=== PATIENT | female | born 1980 | race Caucasian/White ===

== ENCOUNTER 2017-02-02 20:13 | Outpatient (CLI) | payer OTHER ==
[2017-02-02 21:25] LABS: HEMATOCRIT 37.1 % (34.6-47.8); HEMOGLOBIN 12.6 g/dL (11.7-16.4); WHITE BLOOD COUNT 7.6 x10^3/uL (3.4-10)
[2017-02-02 21:34] LABS: BLOOD UREA NITROGEN 7 mg/dL (7-18)
[2017-02-02 21:37] LABS: ASPARTATE AMINO TRANSFERASE 16 U/L (15-37)
[2017-02-02 21:53] LABS: AMNI OBC PASS; AMNISURE NEGATIVE (NEGATIVE)
== END 2017-02-02 22:30 | disposition home or self-care (01) ==
LOC: LDOP 20:13
PROVIDERS: ATTEND Obstetrics & Gynecology
DX: O09.523 Supervision of elderly multigravida, third trimester (principal); O26.893 Other specified pregnancy related conditions, third trimester; O10.913 Unspecified pre-existing hypertension complicating pregnancy, third trimester; O99.343 Other mental disorders complicating pregnancy, third trimester; F32.9 Major depressive disorder, single episode, unspecified; R10.9 Unspecified abdominal pain; Z3A.31 31 weeks gestation of pregnancy
CPT/HCPCS: 36415; 59025; 76815; 80053; 81003; 82248; 84112; 84550; 85025; 87086; 99201; G0463

== ENCOUNTER 2017-02-14 10:08 | Outpatient (CLI) | payer OTHER ==
[~2017-02-14] VITALS: Ht 160 cm; Wt 98.2 kg
[2017-02-14 11:23] LABS: HEMATOCRIT 37.5 % (34.6-47.8); HEMOGLOBIN 12.7 g/dL (11.7-16.4); WHITE BLOOD COUNT 6.6 x10^3/uL (3.4-10)
[2017-02-14 11:34] LABS: ASPARTATE AMINO TRANSFERASE 19 U/L (15-37); BLOOD UREA NITROGEN 9 mg/dL (7-18)
[2017-02-14] MEDS ORDERED: LABE200T3 PO (13:01)
[2017-02-14] MEDS ORDERED: BUSP5TAB2 PO (13:02)
[2017-02-14] MEDS ORDERED: PREN1TAB10 PO (13:03)
[2017-02-14] MEDS ORDERED: FAMO-79 PO (13:04)
[2017-02-14 13:16] VITALS: BP 123/88
== END 2017-02-14 13:30 | disposition home or self-care (01) ==
LOC: LDOP 10:08
PROVIDERS: ATTEND Obstetrics & Gynecology
DX: O09.513 Supervision of elderly primigravida, third trimester (principal); O10.913 Unspecified pre-existing hypertension complicating pregnancy, third trimester; O99.213 Obesity complicating pregnancy, third trimester; O99.343 Other mental disorders complicating pregnancy, third trimester; F32.9 Major depressive disorder, single episode, unspecified; Z3A.33 33 weeks gestation of pregnancy
CPT/HCPCS: 36415; 59025; 76815; 80053; 81003; 82570; 84156; 84550; 85025; 99211; G0463

== ENCOUNTER 2017-02-17 23:33 | Outpatient (CLI) | payer OTHER ==
[~2017-02-17] VITALS: Ht 160 cm; Wt 98.1 kg
[~2017-02-17 23:33] MED LIST: BUSP5TAB2 PO; FAMO-79 PO; LABE200T3 PO; PREN1TAB10 PO
== END 2017-02-18 01:10 | disposition home or self-care (01) ==
LOC: LDOP 23:33
PROVIDERS: ATTEND Obstetrics & Gynecology
DX: O09.513 Supervision of elderly primigravida, third trimester (principal); O99.213 Obesity complicating pregnancy, third trimester; O10.913 Unspecified pre-existing hypertension complicating pregnancy, third trimester; O99.343 Other mental disorders complicating pregnancy, third trimester; F32.9 Major depressive disorder, single episode, unspecified; Z3A.33 33 weeks gestation of pregnancy
CPT/HCPCS: 59025; 81003; 87086; 99211; G0463

== ENCOUNTER 2017-02-24 14:50 | Outpatient (CLI) | payer OTHER ==
[~2017-02-24] VITALS: Ht 160 cm; Wt 102.2 kg
[2017-02-24 15:03] VITALS: BP 130/83
== END 2017-02-24 15:40 | disposition home or self-care (01) ==
LOC: LDOP 14:50
PROVIDERS: ATTEND Obstetrics & Gynecology
DX: O09.513 Supervision of elderly primigravida, third trimester (principal); O99.213 Obesity complicating pregnancy, third trimester; O10.913 Unspecified pre-existing hypertension complicating pregnancy, third trimester; O99.343 Other mental disorders complicating pregnancy, third trimester; F32.9 Major depressive disorder, single episode, unspecified; Z3A.34 34 weeks gestation of pregnancy
CPT/HCPCS: 59025; 99211; G0463

== ENCOUNTER 2017-02-27 14:32 | Outpatient (CLI) | payer OTHER ==
[~2017-02-27] VITALS: Ht 160 cm; Wt 100.0 kg
[2017-02-27 15:00] VITALS: BP 137/92
== END 2017-02-27 16:44 | disposition home or self-care (01) ==
LOC: LDOP 14:32
PROVIDERS: ATTEND Obstetrics & Gynecology
DX: O09.513 Supervision of elderly primigravida, third trimester (principal); O99.213 Obesity complicating pregnancy, third trimester; O10.913 Unspecified pre-existing hypertension complicating pregnancy, third trimester; O99.343 Other mental disorders complicating pregnancy, third trimester; F32.9 Major depressive disorder, single episode, unspecified; Z3A.33 33 weeks gestation of pregnancy
CPT/HCPCS: 59025; 76819; 99211; G0463

== ENCOUNTER → 2017-08-18 | Outpatient (CLI) | payer OTHER ==
[~2017-08-18] MED LIST changes: +DOCU-131 PO; +HYDR-3240 PO; +LIDOCAINE 1%, 20ML ONE
== END | disposition home or self-care (01) ==
LOC: CFH 10:23 → EDSTATUS 10:30
PROVIDERS: ATTEND Nurse Practitioner Family
DX: D24.2 Benign neoplasm of left breast (principal)
CPT/HCPCS: 19083; 88305; J3490

== ENCOUNTER 2018-06-05 19:23 | Emergency (ER) | payer OTHER ==
[~2018-06-05] VITALS: Ht 160 cm; Wt 91.0 kg
[~2018-06-05 19:23] MED LIST changes: -LABE200T3 PO; +LABE200T6 PO; -LIDOCAINE 1%, 20ML ONE
[2018-06-05] MEDS ORDERED: ACETAMINOPHEN 500 MG TABLET PO ONE (19:30)
[2018-06-05] MEDS ORDERED: ACETAMINOPHEN 500 MG TABLET ONE (19:33)
[2018-06-05 20:03] LABS: RAPID INFLUENZA A Negative (Negative); RAPID INFLUENZA B Negative (Negative)
[2018-06-05 20:07] LABS: BASOPHILS # (AUTO) 0.02 x10^3/uL (0-0.1); BASOPHILS % (AUTO) 0 % (0-1); EOSINOPHILS # (AUTO) 0.03 x10^3/uL (0-0.4); EOSINOPHILS % (AUTO) 1 % (1-7); LYMPHOCYTES # (AUTO) 0.77 x10^3/uL (1-3.4); LYMPHOCYTES % (AUTO) 15 % (22-44); MD NO; MEAN CORPUSCULAR HEMOGLOBIN 32.8 pg (27.0-34.8); MEAN CORPUSCULAR VOLUME 93.7 fL (80-100); MEAN PLATELET VOLUME 7.3 fL (7.4-10.4); MONOCYTES # (AUTO) 0.28 x10^3/uL (0.2-0.8); MONOCYTES % (AUTO) 6 % (2-9); NEUTROPHILS # (AUTO) 3.87 x10^3/uL (1.8-6.8); NEUTROPHILS % (AUTO) 78 % (42-75); PLATELET COUNT 322 x10^3/uL (130-400); RED BLOOD COUNT 4.38 x10^6/uL (3.82-5.3); RED CELL DISTRIBUTION WIDTH 12.4 % (9.6-15.2)
[2018-06-05 20:16] LABS: ALBUMIN 3.7 g/dL (3.4-5.0); ANION GAP 8 mmol/L (5-15); CALCIUM 8.5 mg/dL (8.5-10.1); CHLORIDE 106 mmol/L (98-107)
[2018-06-05 20:21] LABS: ALANINE AMINOTRANSFERASE 198 U/L (12-78); ALKALINE PHOSPHATASE 114 U/L (45-117); BILIRUBIN,TOTAL 0.4 mg/dL (0.2-1.0); CREATININE 0.95 mg/dL (0.55-1.02); TOTAL PROTEIN 7.1 g/dL (6.4-8.2); TROPONIN I < 0.015 ng/mL (0.000-0.045)
[2018-06-05 20:33] LABS: MICROSCOPIC NOT IND
[2018-06-05 20:38] LABS: CULTURE INDICATED? NO
[2018-06-05 22:08] VITALS: BP 143/95
== END 2018-06-05 22:10 | disposition home or self-care (01) ==
LOC: ED 21:14
DX: B34.9 Viral infection, unspecified (principal); I10 Essential (primary) hypertension
CPT/HCPCS: 36415; 71046; 80053; 81003; 84484; 85025; 87400; 93005; 99284

== ENCOUNTER 2018-06-07 17:52 | Emergency (ER) | payer OTHER ==
[~2018-06-07] VITALS: Ht 160 cm; Wt 89.4 kg
--- NOTE | 2018-06-07 18:32 | NUR ---
Pt back to room from bathroom, urine sample collected. Pt unable to provide stool sample at this time.
--- NOTE | 2018-06-07 18:38 | NUR ---
Susan LEAL, at bedside to evaluate pt.
[2018-06-07] MEDS ORDERED: ESCI5TAB7 PO (18:44)
[2018-06-07] MEDS ORDERED: SODIUM CHLORIDE 0.9% 1,000 ML IV ONE (18:44)
[2018-06-07] MEDS ORDERED: BUPR-173 PO (18:44)
[2018-06-07] MEDS ORDERED: LISI-167 PO (18:44)
[2018-06-07] MEDS ORDERED: LABE200T6 PO (18:44)
[2018-06-07 19:00] LABS: MICROSCOPIC NOT IND
[2018-06-07] MEDS ORDERED: SODIUM CHLORIDE FLUSH 10ML SYR IVF ONE (19:00)
[2018-06-07 19:03] LABS: CULTURE INDICATED? NO
--- NOTE | 2018-06-07 19:09 | NUR ---
PIV started, labs drawn including blood cultures x 1. Lab at bedside for 2nd blood culture. IVF running.
--- NOTE | 2018-06-07 19:11 | NUR ---
[employer] at bedside with hat in place for stool sample collection.
[2018-06-07 19:24] LABS: BASOPHILS # (AUTO) 0.01 x10^3/uL (0-0.1); BASOPHILS % (AUTO) 0 % (0-1); EOSINOPHILS # (AUTO) 0.02 x10^3/uL (0-0.4); EOSINOPHILS % (AUTO) 1 % (1-7); LYMPHOCYTES # (AUTO) 1.22 x10^3/uL (1-3.4); LYMPHOCYTES % (AUTO) 31 % (22-44); MD NO; MEAN CORPUSCULAR HEMOGLOBIN 32.8 pg (27.0-34.8); MEAN CORPUSCULAR HGB CONC 35.1 g/dL (32.4-35.8); MEAN CORPUSCULAR VOLUME 93.6 fL (80-100); MEAN PLATELET VOLUME 7.3 fL (7.4-10.4); MONOCYTES # (AUTO) 0.56 x10^3/uL (0.2-0.8); MONOCYTES % (AUTO) 14 % (2-9); NEUTROPHILS # (AUTO) 2.18 x10^3/uL (1.8-6.8); NEUTROPHILS % (AUTO) 55 % (42-75); PLATELET COUNT 319 x10^3/uL (130-400); RED BLOOD COUNT 4.42 x10^6/uL (3.82-5.3); RED CELL DISTRIBUTION WIDTH 12.4 % (9.6-15.2)
[2018-06-07 19:35] LABS: ALBUMIN 3.6 g/dL (3.4-5.0); ANION GAP 6 mmol/L (5-15); CALCIUM 8.8 mg/dL (8.5-10.1); CHLORIDE 109 mmol/L (98-107)
[2018-06-07 19:41] LABS: ALANINE AMINOTRANSFERASE 272 U/L (12-78); ALKALINE PHOSPHATASE 155 U/L (45-117); BILIRUBIN,TOTAL 0.3 mg/dL (0.2-1.0); CREATININE 0.97 mg/dL (0.55-1.02); TOTAL PROTEIN 7.2 g/dL (6.4-8.2)
--- NOTE | 2018-06-07 19:49 | NUR ---
Pt states that she attempted to give stool sample as she felt like she had to have diarrhea. Pt states that now only gas is coming out and she c/o pain to her rectum r/t wiping and hemorrhoids.
--- NOTE | 2018-06-07 20:03 | NUR ---
Stool sample collected and walked to lab.
--- NOTE | 2018-06-07 20:04 | NUR ---
Pt to imaging, with tech, on [place].
[2018-06-07] MEDS ORDERED: OMNIPAQUE 350 MG/ML, 100ML BOTTLE ONE (20:07)
[2018-06-07 21:30] LABS: CLOSTRIDIUM DIFFICILE ANTIGEN NEGATIVE; CLOSTRIDIUM DIFFICILE TOXIN NEGATIVE (Negative)
[2018-06-07 21:58] VITALS: BP 138/87
--- NOTE | 2018-06-07 21:59 | NUR ---
Patient/Caregiver given discharge instructions and they have confirmed that they understand the instructions. Patient ambulatory with steady gait.
== END 2018-06-07 22:00 | disposition home or self-care (01) ==
LOC: ED 19:25
DX: R19.7 Diarrhea, unspecified (principal); R10.84 Generalized abdominal pain; R50.9 Fever, unspecified; R94.5 Abnormal results of liver function studies; I10 Essential (primary) hypertension
CPT/HCPCS: 36415; 74177; 80053; 81003; 83605; 83690; 84145; 84703; 85025; 87040; 87324; 89055; 96360; 96361; 99284; J7030; Q9967

== ENCOUNTER 2018-10-10 16:38 | Emergency (ER) | payer OTHER ==
[~2018-10-10] VITALS: Ht 160 cm; Wt 91.0 kg
[~2018-10-10 16:38] MED LIST changes: +BUPR-173 PO; +ESCI5TAB7 PO; +LISI-167 PO
--- NOTE | 2018-10-10 16:55 | NUR ---
PT IS NAUSEATED AND HAD VOMITED EARLIER. NOT SURE IF SHE KEPT DOWN HER HOME MIGRAINE MEDS. PT HAS A MCBRIDE TOP OF HEAD, PHOTOPHOBIA. LIGHTS TURNED OFF. PROVIDED A COOL WASHCLOTH FOR HEAD.
[2018-10-10] MEDS ORDERED: SUMA25TA4 PO (17:00)
[2018-10-10] MEDS ORDERED: ONDA4TAB7 PO (17:00)
[2018-10-10] MEDS ORDERED: KETOROLAC 30 MG/1 ML ONE (17:13)
[2018-10-10] MEDS ORDERED: DIPHENHYDRAMINE 50 MG/ML, 1ML ONE (17:13)
[2018-10-10] MEDS ORDERED: PROCHLORPERAZINE 5 MG/ML, 2ML ONE (17:13)
[2018-10-10] MEDS ORDERED: SODIUM CHLORIDE 0.9% 1,000ML IVBOLUS ONE (17:30)
[2018-10-10] MEDS ORDERED: KETOROLAC 30 MG/1 ML IVPush ONE (17:30)
[2018-10-10] MEDS ORDERED: PROCHLORPERAZINE 5 MG/ML, 2ML IVPush ONE (17:30)
[2018-10-10] MEDS ORDERED: DIPHENHYDRAMINE 50 MG/ML, 1ML IVPush ONE (17:30)
--- NOTE | 2018-10-10 17:30 | NUR ---
MEDICATED PER ORDERS WITH FLUIDS INFUSING
--- NOTE | 2018-10-10 18:07 | NUR ---
PT STATES NO MCBRIDE SINCE MEDICATED FOR MCBRIDE. LYING ON SIDE WITH EYES COVERED. PT HAS CHILLS AND GIVEN WARM BLANKETS
[2018-10-10 19:00] VITALS: BP 164/73
--- NOTE | 2018-10-10 19:05 | NUR ---
AMBULATED TO BATHROOM WITHOUT ASSISTANCE. STATES SHE DOES NOT HAVE A MCBRIDE BUT DOES NOT FEEL WELL AND WANTING TO GO HOME
== END 2018-10-10 20:10 | disposition home or self-care (01) ==
LOC: ED 17:00
DX: G43.909 Migraine, unspecified, not intractable, without status migrainosus (principal); I10 Essential (primary) hypertension
CPT/HCPCS: 96361; 96374; 96375; 99283; J0780; J1200; J1885; J7030

== ENCOUNTER 2018-11-07 12:49 | Emergency (ER) | payer OTHER ==
[~2018-11-07] VITALS: Ht 160 cm; Wt 94.0 kg
[~2018-11-07 12:49] MED LIST changes: +ONDA4TAB7 PO; +SUMA25TA4 PO
[2018-11-07 13:05] VITALS: BP 133/90
[2018-11-07 13:54] LABS: BASOPHILS # (AUTO) 0.03 x10^3/uL (0-0.1); BASOPHILS % (AUTO) 0 % (0-1); EOSINOPHILS # (AUTO) 0.12 x10^3/uL (0-0.4); EOSINOPHILS % (AUTO) 2 % (1-7); LYMPHOCYTES % (AUTO) 41 % (22-44); MD NO; MEAN CORPUSCULAR HEMOGLOBIN 31.3 pg (27.0-34.8); MEAN CORPUSCULAR HGB CONC 32.6 g/dL (32.4-35.8); MEAN PLATELET VOLUME 6.8 fL (7.4-10.4); MONOCYTES # (AUTO) 0.65 x10^3/uL (0.2-0.8); MONOCYTES % (AUTO) 10 % (2-9); NEUTROPHILS # (AUTO) 2.99 x10^3/uL (1.8-6.8); NEUTROPHILS % (AUTO) 47 % (42-75); PLATELET COUNT 409 x10^3/uL (130-400); RED BLOOD COUNT 4.46 x10^6/uL (3.82-5.3); RED CELL DISTRIBUTION WIDTH 12.4 % (9.6-15.2)
--- NOTE | 2018-11-07 14:08 | NUR ---
Patient/Caregiver given discharge instructions and they have confirmed that they understand the instructions. Patient ambulatory with steady gait.
== END 2018-11-07 14:09 | disposition home or self-care (01) ==
LOC: ED 13:35
DX: L03.115 Cellulitis of right lower limb (principal); I10 Essential (primary) hypertension
CPT/HCPCS: 36415; 85025; 99283

== ENCOUNTER 2018-11-08 10:56 | Emergency (ER) | payer OTHER ==
[~2018-11-08] VITALS: Ht 160 cm; Wt 92.0 kg
--- NOTE | 2018-11-08 11:34 | NUR ---
Pt presents with hives to inside of thighs, under arm, and back. Pt noticed this AM. No SOB, oral swelling, NVD, abd pain. Pt NAD. Started on keflex and bactrim yesterday.
[2018-11-08] MEDS ORDERED: DIPHENHYDRAMINE 25 MG CAPSULE ONE (11:37)
[2018-11-08] MEDS ORDERED: FAMOTIDINE 20 MG TABLET ONE (11:37)
[2018-11-08] MEDS ORDERED: FAMOTIDINE 20 MG TABLET PO ONE (12:00)
[2018-11-08] MEDS ORDERED: DIPHENHYDRAMINE 25 MG CAPSULE PO ONE (12:00)
[2018-11-08 12:47] VITALS: BP 147/94
--- NOTE | 2018-11-08 12:47 | NUR ---
assumed care of pt while primary rn at lunch. pt states rash is better and less itchy
== END 2018-11-08 13:20 | disposition home or self-care (01) ==
LOC: ED 12:04
DX: L50.0 Allergic urticaria (principal)
CPT/HCPCS: 99284; J7512; Q0163